=== PATIENT | female | born 1960 | race Caucasian/White ===

== ENCOUNTER 2019-10-06 06:11 | Day surgery (SDC) | payer MEDICAID ==
[2019-10-06] MEDS ORDERED: Lactated Ringers 1,000 ML IV SCH (06:30)
[2019-10-06] MEDS ORDERED: XYLOCAINE 1%/Epi 1:100000 MDV 20 ML ONE (07:16)
[2019-10-06] MEDS ORDERED: DIPRIVAN 200 MG/20 ML IV ONE (07:49)
[2019-10-06] MEDS ORDERED: Versed 2 MG/2 ML Injection ONE (07:50)
[2019-10-06] MEDS ORDERED: SUBLIMAZE 250 MCG/5 ML ONE (07:50)
[2019-10-06] MEDS ORDERED: Ketamine HCl 50 MG/ML ONE (07:50)
[2019-10-06] MEDS ORDERED: SUBLIMAZE 100 MCG/2 ML ONE (07:52)
[2019-10-06] MEDS ORDERED: Decadron 4 MG INJ ONE (08:01)
[2019-10-06] MEDS ORDERED: Zofran 4 MG/2 ML VIAL ONE (08:01)
[2019-10-06 09:13] VITALS: O2SAT 98
[2019-10-06 09:42] VITALS: BP 149/81; PULSE 67
--- NOTE | 2019-10-07 09:37 | OP ---
SURGERY DATE/TIME: 10/06/2019 0800 PREOPERATIVE DIAGNOSIS: Severe cervical dysplasia. POSTOPERATIVE DIAGNOSIS: Severe cervical dysplasia. PROCEDURE: Loop electrosurgical excision procedure. SURGEON: Chu Eller D.O. EASTER BUNNY: Reed Rubio surgical garment assembly supervisor. ANESTHESIA: MAC sedation. ESTIMATED BLOOD LOSS: Minimal. COMPLICATIONS: None. INDICATIONS: The risks, benefits, indications and alternatives of the procedure were reviewed with the patient prior to procedure. The patient understood the risk of infection, bleeding, bowel injury, bladder injury, ureteral injury, uterine perforation, decreased libido and anorgasmia associated with this procedure and desires to have this procedure as a possible need to alleviate her current medical condition. DESCRIPTION OF PROCEDURE AND FINDINGS: At this point the patient is taken to the operating room, MAC sedation was given without complication. The patient was placed in dorsal lithotomy position, prepped and draped in the usual sterile fashion. A coated speculum is then placed in the patient's vagina and the cervix is then injected circumferentially with 1% lidocaine with epinephrine. From this point the loop instrument was then used to excise the ectocervical tissue in a right to left motion with a depth of 7 to 8 mm which was excised without complication. An additional top hat was taken where an additional 2 to 3 mm of endocervical tissue was excised in similar fashion in a right to left motion. From this point after excision, the loop employment interviewer ball was used to coagulate the surface of the cervix where hemostasis was obtained. From this point the instruments were removed and Monsel solution was placed on the cervix as well for further hemostasis. At this point all instruments were then removed from the patient's vaginal region. There was no bleeding that was noted. The patient was then taken out of the dorsal lithotomy position, was taken out of anesthesia and was then taken to the recovery room in stable condition. All instruments and laps were accounted for x2.
== END 2019-10-06 09:40 | disposition home or self-care (01) ==
LOC: SDC 06:11
PROVIDERS: ATTEND Obstetrics & Gynecology
DX: D06.9 Carcinoma in situ of cervix, unspecified (principal)
CPT/HCPCS: 57460; J1100; J2250; J2405; J2704; J3010

== ENCOUNTER 2019-12-31 20:09 | Emergency (ER) | payer MEDICAID ==
[2019-12-31] MEDS ORDERED: Sodium Chloride 0.9% 1000 ML 1,000 ML IV STA (20:41)
[2019-12-31] MEDS ORDERED: Sodium Chloride 0.9% 1000 ML 1,000 ML ONE ×2 (20:45→23:14)
[2019-12-31 21:00] LABS: ALBUMIN 5.2 g/dL (3.5-5.0); ALKALINE PHOSPHATASE 91 U/L (38-126); ANION GAP 18.5 MEQ/L (5-15); BLOOD UREA NITROGEN 12 mg/dL (7-17); CHLORIDE 62 mmol/L (98-107); Calcium 9.6 mg/dL (8.4-10.2); Carbon Dioxide 29 mmol/L (22-30); Glucose 114 mg/dL (74-106); Potassium 3.1 mmol/L (3.5-5.1); SGOT/AST 113 U/L (14-36); SGPT/ALT 45 U/L (0-35); Total Protein 7.9 g/dL (6.3-8.2)
[2019-12-31 21:04] LABS: SODIUM 106 mmol/L (137-145)
[2019-12-31 21:08] LABS: Absolute Neutrophil Ct (ANC) 8.44 (1.4-6.9); BASOPHIL % 0.1 % (0.0-0.4); Basophil (Absolute #) 0.01 (0-0.4); Eosinophil % 0.2 % (0.00-5.0); Eosinophil (Absolute #) 0.02 (0-0.5); Hematocrit 39.8 % (35-47); Lymphocytes % 14.2 % (24.0-44.0); Mean Cell Volume 82.1 fl (78-100); Mean Corpuscular Hemoglobin 30.9 pg (26-32); Mean Corpuscular Hgb Concent. 37.7 g/dl (32-36); Monocyte (Absolute #) 1.16 (0.0-1.3); Monocytes % 10.3 % (0.0-12.0); Neutrophil % 75.2 % (36.0-66.0); Platelet Count 270 K/mm3 (150-450); Red Blood Count 4.85 M/mm3 (4.1-5.4); Red Cell Distribution Width 12.1 % (11.5-14.0); White Blood Count 11.2 K/mm3 (4.0-10.5)
[2019-12-31] MEDS ORDERED: Klor Con 10 MEQ PO ONE ×2 (21:12→21:20)
[2019-12-31 21:18] LABS: Appearance SLIGHTLY CLOUDY (CLEAR); Bacteria MANY /HPF (NEGATIVE); Bilirubin NEGATIVE (NEGATIVE); Blood NEGATIVE Ery/ul (0-5); Epithelial Cells RARE /HPF (FEW); Glucose NEGATIVE (NEGATIVE); Ketones NEGATIVE (NEGATIVE); Leukocyte Esterase NEGATIVE (NEGATIVE); Mucus SLIGHT /HPF (NEGATIVE); Nitrite POSITIVE (NEGATIVE); Protein,Urine Dip NEGATIVE (Negative); RBC 0-2 /HPF (0-2); Specific Gravity 1.013 (1.005-1.025); Urobilinogen NEGATIVE mg/dL (0-1)
--- NOTE | 2019-12-31 21:29 | ERPHSYRPT ---
- History of Present Illness Time Seen by Provider: 12/31/19 20:30 Source: patient Exam Limitations: no limitations Patient Subjective Stated Complaint: pt states she had blood wark drawn at the [facility] today and they called and told her that her sodium and chlor jamshid were low and to go to the emergency room. denies any abnormal symptoms. Triage Nursing Assessment: pt alert and oriented, answers questions approp. pt ambulatoryw ith steady gait noted. respirations nonlabored. skin warm and dry. pt denies chest pain, pressure, shortness of breath. no numbness or tingling. Physician History: Patient is a 59-year-old female presents to our ED for evaluation of hyponatremia. Patient was referred to our department from [facility]. Patient had routine blood drawn and results today reported a sodium of 108. Patient's stated that patient has been losing her balance more frequently. He states that patient seems a little confused. No BHT or LOC. No trauma. Patient is a smoker. Patient states she has lost approximately 60 pounds over the past 2 years. Patient denies symptoms otherwise. No chest pain or shortness of breath. No nausea vomiting or diaphoresis. Patient denies feeling weak. No fever. No neck pain. No photophobia. Patient has no meningeal symptomology. Patient voices no other complaints at this time. Timing/Duration: today Severity: moderate Modifying Factors: Improves With: nothing Associated Symptoms: No nausea, No vomiting, No abdominal pain, No shortness of breath, No heartburn, No diaphoresis, No cough, No chills, No chest pain, No fever, No headaches, No loss of appetite, No malaise, No rash, No syncope, No seizure, No weakness Allergies/Adverse Reactions: Penicillins Allergy (Unknown, Verified 12/31/19 20:36) Sulfa (Sulfonamide Antibiotics) Allergy (Unknown, Verified 12/31/19 20:36) sulfamethoxazole [From Bactrim] Allergy (Unknown, Verified 12/31/19 20:36) trimethoprim [From Bactrim] Allergy (Unknown, Verified 12/31/19 20:36) Home Medications: Hydroxychloroquine Sulfate [Plaquenil] 200 mg PO DAILY 09/30/19 [History] Lisinopril 20 mg [Zestril 20 MG] 30 mg PO DAILY 09/30/19 [History] Chlorthalidone 25 mg PO 12/31/19 [History] Hx Tetanus, Diphtheria Vaccination/Date Given: No (unsure) Hx Influenza Vaccination/Date Given: No Hx Pneumococcal Vaccination/Date Given: No Immunizations Up to Date: No Travel Risk - International Travel Have you traveled outside of the country in past 3 weeks: No - Coronavirus Screening Are you exhibiting any of the following symptoms?: No Close contact with a COVID-19 positive Pt in past 14-21 Days: No - Review of Systems Constitutional: No Symptoms, No Fever, No Chills Eyes: No Symptoms Ears, Nose, & Throat: No Symptoms Respiratory: No Symptoms, No Cough, No Dyspnea Cardiac: No Symptoms, No Chest Pain, No Edema, No Syncope Abdominal/Gastrointestinal: No Symptoms, No Abdominal Pain, No Nausea, No Vomiting, No Diarrhea Genitourinary Symptoms: No Symptoms, No Dysuria Musculoskeletal: No Symptoms, No Back Pain, No Neck Pain Skin: No Symptoms, No Rash Neurological: No Symptoms, No Dizziness, No Focal Weakness, No Sensory Changes Psychological: No Symptoms Endocrine: No Symptoms Hematologic/Lymphatic: No Symptoms Immunological/Allergic: No Symptoms All Other Systems: Reviewed and Negative - Past Medical History Pertinent Past Medical History: Yes Neurological History: No Pertinent History ENT History: No Pertinent History Cardiac History: Hypertension Respiratory History: No Pertinent History Endocrine Medical History: No Pertinent History Musculoskeletal History: Arthritis GI Medical History: No Pertinent History History: No Pertinent History Psycho-Social History: No Pertinent History Female Reproductive Disorders: No Pertinent History - Past Surgical History Past Surgical History: Yes Neuro Surgical History: No Pertinent History Cardiac: No Pertinent History Respiratory: No Pertinent History Gastrointestinal: No Pertinent History Female Surgical History: Tubal Ligation, Other Other Surgical History: tubal pregnacy - Social History Smoking Status: Current every day smoker How long have you smoked: age 21 Exposure to second hand smoke: Yes Drug Use: none Patient Lives Alone: No - Nursing Vital Signs Nursing Vital Signs: Initial Vital Signs Temperature 97.7 F 12/31/19 20:26 Pulse Rate 65 12/31/19 20:26 Respiratory Rate 16 12/31/19 20:26 Blood Pressure 127/108 12/31/19 20:26 O2 Sat by Pulse Oximetry 100 12/31/19 20:26 Pain Scale Pain Intensity 0 - Physical Exam General Appearance: no apparent distress, alert Eye Exam: PERRL/EOMI, eyes nml inspection Ears, Nose, Throat Exam: normal ENT inspection, TMs normal, pharynx normal, moist mucous membranes Neck Exam: normal inspection, non-tender, supple, full range of motion Respiratory Exam: normal breath sounds, lungs clear, No respiratory distress Cardiovascular Exam: regular rate/rhythm, normal heart sounds, normal peripheral pulses Gastrointestinal/Abdomen Exam: soft, normal bowel sounds, No tenderness, No mass Back Exam: normal inspection, normal range of motion, No CVA tenderness, No vertebral tenderness Extremity Exam: normal inspection, normal range of motion, pelvis stable Neurologic Exam: alert, oriented x 3, cooperative, normal mood/affect, nml cerebellar function, sensation nml, No motor deficits Skin Exam: normal color, warm, dry, No rash Lymphatic Exam: No adenopathy SpO2: 100 O2 Delivery: Room Air - Course Nursing assessment & vital signs reviewed: Yes - Radiology Exams Chest X-ray Interpretation: Interpreted by me (faint opacity left lung base) - CT Exams Head CT Interpretation: Tele-radiologist Report (No acute intracranial abnormality. Mild atrophy. Small chronic right lacunar infarct.) Ordered Tests: Active Orders 24 hr Category Date Time Status IV Insertion STAT Care 12/31/19 20:41 Completed CHEST 1 VIEW (PORTABLE) Stat Exams 12/31/19 23:20 Taken HEAD WITHOUT CONTRAST [CT] Stat Exams 12/31/19 23:19 Taken CBC W DIFF Stat Lab 12/31/19 20:44 Completed CMP Stat Lab 12/31/19 20:44 Completed CULTURE,URINE Stat Lab 12/31/19 21:09 Received UA W/RFX UR CULTURE Stat Lab 12/31/19 21:09 Completed Medication Summary Discontinued Medications Generic Name Dose Route Start Last Admin Trade Name Freq PRN Reason Stop Dose Admin Sodium Chloride 1,000 mls @ 999 mls/hr 12/31/19 20:41 12/31/19 22:05 Sodium Chloride 0.9% 1000 Ml IV 12/31/19 21:41 Infused .Q1H1M STA Infusion Sodium Chloride Confirm 12/31/19 20:45 Sodium Chloride 0.9% 1000 Ml Administered 12/31/19 20:46 Dose 1,000 mls @ ud .ROUTE .STK-MED ONE Sodium Chloride 1,000 mls @ 200 mls/hr 12/31/19 23:15 12/31/19 23:14 Sodium Chloride 0.9% 1000 Ml IV 01/30/20 23:14 200 mls/hr .Q5H IRAM Administration Sodium Chloride Confirm 12/31/19 23:14 Sodium Chloride 0.9% 1000 Ml Administered 12/31/19 23:15 Dose 1,000 mls @ ud .ROUTE .STK-MED ONE Nitrofurantoin Macrocrystals 100 mg 12/31/19 22:51 12/31/19 22:53 Macrobid 100mg Capsule PO 12/31/19 22:52 100 mg STAT ONE Administration Nitrofurantoin Macrocrystals Confirm 12/31/19 22:53 Macrobid 100mg Capsule Administered 12/31/19 22:54 Dose 100 mg .ROUTE .STK-MED ONE Potassium Chloride 40 meq 12/31/19 21:12 12/31/19 21:21 Klor Con 10 Meq PO 12/31/19 21:13 40 meq STAT ONE Administration Potassium Chloride Confirm 12/31/19 21:20 Klor Con 10 Meq Administered 12/31/19 21:21 Dose 40 meq PO .STK-MED ONE Lab/Rad Data: Laboratory Result Diagrams 12/31/19 20:44 12/31/19 20:44 Laboratory Results 12/31/19 12/31/19 12/31/19 Range/Units 21:09 20:44 20:44 WBC 11.2 H (4.0-10.5) K/mm3 RBC 4.85 (4.1-5.4) M/mm3 Hgb 15.0 (12.0-16.0) gm/dl Hct 39.8 (35-47) % MCV 82.1 (78-100) fl MCH 30.9 (26-32) pg MCHC 37.7 H (32-36) g/dl RDW 12.1 (11.5-14.0) % Plt Count 270 (150-450) K/mm3 MPV 9.0 (7.5-11.0) fl Gran % 75.2 H (36.0-66.0) % Eos # (Auto) 0.02 (0-0.5) Absolute Lymphs (auto) 1.60 (1.0-4.6) Absolute Monos (auto) 1.16 (0.0-1.3) Lymphocytes % 14.2 L (24.0-44.0) % Monocytes % 10.3 (0.0-12.0) % Eosinophils % 0.2 (0.00-5.0) % Basophils % 0.1 (0.0-0.4) % Absolute Granulocytes 8.44 H (1.4-6.9) Basophils # 0.01 (0-0.4) Sodium 106 L* (137-145) mmol/L Potassium 3.1 L (3.5-5.1) mmol/L Chloride 62 L (98-107) mmol/L Carbon Dioxide 29 (22-30) mmol/L Anion Gap 18.5 H (5-15) MEQ/L BUN 12 (7-17) mg/dL Creatinine 0.90 (0.52-1.04) mg/dL Estimated GFR > 60.0 ML/MIN Glucose 114 H (74-106) mg/dL Calcium 9.6 (8.4-10.2) mg/dL Total Bilirubin 1.30 (0.2-1.3) mg/dL AST 113 H (14-36) U/L ALT 45 H (0-35) U/L Alkaline Phosphatase 91 (38-126) U/L Serum Total Protein 7.9 (6.3-8.2) g/dL Albumin 5.2 H (3.5-5.0) g/dL Urine Color YELLOW (YELLOW) Urine Appearance SLIGHTLY CLOUDY (CLEAR) Urine pH 6.0 (5-6) Ur Specific [place] 1.013 (1.005-1.025) Urine Protein NEGATIVE (Negative) Urine Ketones NEGATIVE (NEGATIVE) Urine Blood NEGATIVE (0-5) Aquiles/ul Urine Nitrite POSITIVE (NEGATIVE) Urine Bilirubin NEGATIVE (NEGATIVE) Urine Urobilinogen NEGATIVE (0-1) mg/dL Ur Leukocyte Esterase NEGATIVE (NEGATIVE) Urine WBC (Auto) 6-10 (0-5) /HPF Urine RBC (Auto) 0-2 (0-2) /HPF U Hyaline Cast (Auto) 6-10 (0-2) /LPF U Epithel Cells (Auto) RARE (FEW) /HPF Urine Bacteria (Auto) MANY (NEGATIVE) /HPF Urine Mucus (Auto) SLIGHT (NEGATIVE) /HPF Urine Culture Reflexed YES (NO) Urine Glucose NEGATIVE (NEGATIVE) mg/dL - Progress Progress: improved Progress Note: 01/01/20 00:[address] Floyd, ER physician at [facility] who accepts transfer. Plan of care discussed with patient and . They agreed to transfer to [facility] for further evaluation and treatment. Discussed with Dr.: Kimble (Case discussed with Dr. Ng who advises transfer for higher level of care.) Counseled pt/family regarding: lab results, diagnosis, rad results, smoking cessation - Departure Departure Disposition: In-patient Admission, Transfer Clinical Impression: Hyponatremia, UTI (urinary tract infection), Confusion, Electrolyte abnormality, Hyperalbuminemia, Hypokalemia, Opacity of lung on imaging study Condition: Stable Critical Care Time: No Referrals: VICENTA CESAR COMMUNITY ASSISTANT [Primary Care Provider] -
[2019-12-31] MEDS ORDERED: Macrobid 100MG Capsule PO ONE (22:51)
[2019-12-31] MEDS ORDERED: Macrobid 100MG Capsule ONE (22:53)
[2019-12-31] MEDS ORDERED: Sodium Chloride 0.9% 1000 ML 1,000 ML IV SCH (23:15)
[2020-01-01 01:15] VITALS: BP 116/73; PULSE 62
[2020-01-01 01:59] VITALS: O2SAT 100
--- NOTE | 2020-01-01 09:01 | XRAY ---
Indication: Malignancy. Confusion. Comparison: None Portable apical lordotic chest hyperinflated and clear with incidental left hilar calcified granulomas. Heart and mediastinal structures within normal limits. Bony thorax intact with mild osteopenia, mild degenerative changes, and mild double curvature scoliosis. Impression: Nonacute hyperinflated chest with chronic features.
--- NOTE | 2020-01-01 09:04 | XRAY ---
Indication: Confusion. No known injury. Multiple contiguous axial images obtained through the head without contrast. Comparison: None Age-appropriate global atrophy and minimal periventricular degenerative micro-ischemia bilaterally. Small 8-9 mm focus old infarct right external capsule anteriorly. No acute intracranial hemorrhage, abnormal extra-axial fluid collection, or mass effect. Fourth ventricle is midline without hydrocephalus. Holcomb-white matter differentiation maintained. Bony calvarium intact. Visualized paranasal sinuses and mastoid air cells are clear. Impression: Nonacute aging brain with small old infarct right external capsule. Comment: Preliminary interpretation was made by [facility]. No critical discrepancy.
== END 2020-01-01 01:13 | disposition short-term general hospital (02) ==
LOC: ED 20:09
DX: E87.1 Hypo-osmolality and hyponatremia (principal); N39.0 Urinary tract infection, site not specified; R41.0 Disorientation, unspecified; E87.8 Other disorders of electrolyte and fluid balance, not elsewhere classified; E88.09 Other disorders of plasma-protein metabolism, not elsewhere classified; E87.6 Hypokalemia; R91.8 Other nonspecific abnormal finding of lung field
CPT/HCPCS: 36000; 36415; 70450; 71045; 80053; 81001; 85025; 87077; 87086; 87186; 96360; 96361; 99285; A9270-GY

== ENCOUNTER 2022-04-24 20:05 | Emergency (ER) | payer OTHER ==
--- NOTE | 2022-04-24 20:29 | ERPHSYRPT ---
- History of Present Illness Time Seen by Provider: 04/24/22 20:29 Source: patient, family Exam Limitations: no limitations Patient Subjective Stated Complaint: pt went and seen DR. subramanian today for routine checkup for and had labs checked for her home meds and sodium was low Triage Nursing Assessment: pt ambulatory to bed by self, pt alert and oriented x3, pt went and seen Dr. Subramanian today for routine blood work and sodium was low. pt was sent here by Dr. Cates. skin pwd, pt slightly hypertensive and slightly anxious Physician History: This is a 61-year-old white female patient of Dr. Subramanian with known, chronic low sodium who states she is using in the 128 230 range. However, labs drawn this morning showed a sodium of 120. The report was given to Dr. Darryn Lamb this evening and patient was told to come into the hospital for repeat blood draw and further management. Patient states that she is not confused and does not have a headache. She states that she has no symptoms. She has no shortness of breath. She has no chest pain. She has no nausea vomiting or diarrhea. She has no abdominal pain. Patient is supposed to be taking sodium chloride tablets twice a day but only takes it once a day. Patient a history of hypertension. Timing/Duration: today Severity: mild Modifying Factors: Improves With: other Associated Symptoms: denies symptoms Allergies/Adverse Reactions: Penicillins Allergy (Unknown, Verified 04/24/22 20:19) Sulfa (Sulfonamide Antibiotics) Allergy (Unknown, Verified 04/24/22 20:19) sulfamethoxazole [From Bactrim] Allergy (Unknown, Verified 04/24/22 20:19) trimethoprim [From Bactrim] Allergy (Unknown, Verified 04/24/22 20:19) Home Medications: Hydroxychloroquine Sulfate [Plaquenil] 200 mg PO DAILY 09/30/19 [History] Lisinopril 20 mg [Zestril 20 MG] 420 mg PO DAILY 09/30/19 [History] Amlodipine Besylate 5 mg PO DAILY 04/24/22 [History] Sodium Chloride 1,000 mg PO DAILY 04/24/22 [History] Hx Tetanus, Diphtheria Vaccination/Date Given: No Hx Influenza Vaccination/Date Given: Yes Hx Pneumococcal Vaccination/Date Given: No Immunizations Up to Date: No Travel Risk - International Travel Have you traveled outside of the country in past 3 weeks: No - Coronavirus Screening Are you exhibiting any of the following symptoms?: No Close contact with a COVID-19 positive Pt in past 14-21 Days: No - Vaccine Status Have you recieved a Covid-19 vaccination: Yes Special Warfare Operator: [employer] - Review of Systems Constitutional: No Symptoms Eyes: No Symptoms Ears, Nose, & Throat: No Symptoms Respiratory: No Symptoms Cardiac: No Symptoms Abdominal/Gastrointestinal: No Symptoms Genitourinary Symptoms: No Symptoms Musculoskeletal: No Symptoms Skin: No Symptoms Neurological: No Symptoms Psychological: No Symptoms Endocrine: No Symptoms Hematologic/Lymphatic: No Symptoms Immunological/Allergic: No Symptoms All Other Systems: Reviewed and Negative - Past Medical History Pertinent Past Medical History: Yes Neurological History: No Pertinent History ENT History: No Pertinent History Cardiac History: Hypertension Respiratory History: No Pertinent History Endocrine Medical History: No Pertinent History Musculoskeletal History: Arthritis GI Medical History: No Pertinent History History: No Pertinent History Psycho-Social History: No Pertinent History Female Reproductive Disorders: No Pertinent History - Past Surgical History Past Surgical History: Yes Neuro Surgical History: No Pertinent History Cardiac: No Pertinent History Respiratory: No Pertinent History Gastrointestinal: No Pertinent History Musculoskeletal: No Pertinent History Female Surgical History: Tubal Ligation, Other Other Surgical History: tubal pregnacy - Social History Smoking Status: Current every day smoker How long have you smoked: age 21 Exposure to second hand smoke: Yes Drug Use: none Patient Lives Alone: No - Nursing Vital Signs Nursing Vital Signs: Initial Vital Signs Temperature 97.8 F 04/24/22 20:19 Pulse Rate 78 04/24/22 20:19 Respiratory Rate 18 04/24/22 20:19 Blood Pressure 164/93 04/24/22 20:19 O2 Sat by Pulse Oximetry 98 04/24/22 20:19 Pain Scale Pain Intensity 0 - Physical Exam General Appearance: no apparent distress, alert, anxiety Eye Exam: PERRL/EOMI, eyes nml inspection Ears, Nose, Throat Exam: normal ENT inspection, moist mucous membranes Neck Exam: normal inspection, non-tender, supple, full range of motion Respiratory Exam: normal breath sounds, lungs clear, airway intact, No chest te nderness, No respiratory distress Cardiovascular Exam: regular rate/rhythm, normal heart sounds, normal peripheral pulses Gastrointestinal/Abdomen Exam: soft, normal bowel sounds, No tenderness Pelvic Exam: not done Rectal Exam: not done Neurologic Exam: alert, oriented x 3, cooperative, 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, normal mood/affect, nml cerebellar function, nml station & gait, sensation nml Skin Exam: normal color, warm, dry Lymphatic Exam: No adenopathy SpO2 Interpretation: normal SpO2: 98 O2 Delivery: Room Air - Course Nursing assessment & vital signs reviewed: Yes Ordered Tests: Active Orders 24 hr Category Date Time Status IV Insertion STAT Care 04/24/22 20:29 Active CBC W DIFF Stat Lab 04/24/22 20:29 Completed CMP Stat Lab 04/24/22 20:30 Completed POTASSIUM, URINE RANDOM Stat Lab 04/24/22 21:14 Completed Sodium, Urine Stat Lab 04/24/22 21:14 Completed UA W/RFX CULTURE Stat Lab 04/24/22 21:14 Received Medication Summary Discontinued Medications Generic Name Dose Route Start Last Admin Trade Name Kuldipq PRN Reason Stop Dose Admin Sodium Chloride 1,000 mls @ 999 mls/hr 04/24/22 20:29 04/24/22 21:44 Sodium Chloride 0.9% 1000 Ml IV 04/24/22 21:29 Infused .Q1H1M STA Infusion Sodium Chloride Confirm 04/24/22 20:37 Sodium Chloride 0.9% 1000 Ml Administered 04/24/22 20:38 Dose 1,000 mls @ ud .ROUTE .K-MED ONE Lab/Rad Data: Laboratory Result Diagrams 04/24/22 20:29 04/24/22 20:30 Laboratory Results 04/24/22 04/24/22 04/24/22 Range/Units 21:14 21:14 20:30 WBC (4.0-10.5) x10^3/uL RBC (4.1-5.4) x10^6/uL Hgb (12.0-16.0) g/dL Hct (35-47) % MCV (78-100) fL MCH (26-32) pg MCHC (32-36) g/dL RDW (11.5-14.0) % Plt Count (150-450) x10^3/uL MPV (7.5-11.0) fL Gran % (36.0-66.0) % Immature Gran % (Auto) (0.00-0.4) % Nucleat RBC Rel Count (0.00-0.1) % Eos # (Auto) (0-0.5) x10^3/uL Immature Gran # (Auto) (0.00-0.03) x10^3u/L Absolute Lymphs (auto) (1.0-4.6) x10^3/uL Absolute Monos (auto) (0.0-1.3) x10^3/uL Absolute Nucleated RBC (0.00-0.01) x10^3u/L Lymphocytes % (24.0-44.0) % Monocytes % (0.0-12.0) % Eosinophils % (0.00-5.0) % Basophils % (0.0-0.4) % Absolute Granulocytes (1.4-6.9) x10^3/uL Basophils # (0-0.4) x10^3/uL Sodium 124 L (137-145) mmol/L Potassium 4.0 D (3.5-5.1) mmol/L Chloride 91 L (98-107) mmol/L Carbon Dioxide 24 (22-30) mmol/L Anion Gap 13.0 (5-15) MEQ/L BUN 7 (7-17) mg/dL Creatinine 0.61 (0.52-1.04) mg/dL Estimated GFR > 60.0 ML/MIN Glucose 97 (74-106) mg/dL Calcium 9.2 (8.4-10.2) mg/dL Total Bilirubin 0.70 (0.2-1.3) mg/dL AST 24 (14-36) U/L ALT 18 (0-35) U/L Alkaline Phosphatase 98 (38-126) U/L Serum Total Protein 7.8 (6.3-8.2) g/dL Albumin 4.9 (3.5-5.0) g/dL Urine Sodium 21 L (30-90) mmol/L Urine Potassium 5.0 mmol/L 04/24/22 Range/Units 20:29 WBC 8.5 (4.0-10.5) x10^3/uL RBC 4.47 (4.1-5.4) x10^6/uL Hgb 14.2 (12.0-16.0) g/dL Hct 41.1 (35-47) % MCV 91.9 (78-100) fL MCH 31.8 (26-32) pg MCHC 34.5 (32-36) g/dL RDW 11.8 (11.5-14.0) % Plt Count 305 (150-450) x10^3/uL MPV 8.7 (7.5-11.0) fL Gran % 56.7 (36.0-66.0) % Immature Gran % (Auto) 0.2 (0.00-0.4) % Nucleat RBC Rel Count 0.0 (0.00-0.1) % Eos # (Auto) 0.09 (0-0.5) x10^3/uL Immature Gran # (Auto) 0.02 (0.00-0.03) x10^3u/L Absolute Lymphs (auto) 2.73 (1.0-4.6) x10^3/uL Absolute Monos (auto) 0.82 (0.0-1.3) x10^3/uL Absolute Nucleated RBC 0.00 (0.00-0.01) x10^3u/L Lymphocytes % 32.0 (24.0-44.0) % Monocytes % 9.6 (0.0-12.0) % Eosinophils % 1.1 (0.00-5.0) % Basophils % 0.4 (0.0-0.4) % Absolute Granulocytes 4.84 (1.4-6.9) x10^3/uL Basophils # 0.03 (0-0.4) x10^3/uL Sodium (137-145) mmol/L Potassium (3.5-5.1) mmol/L Chloride (98-107) mmol/L Carbon Dioxide (22-30) mmol/L Anion Gap (5-15) MEQ/L BUN (7-17) mg/dL Creatinine (0.52-1.04) mg/dL Estimated GFR ML/MIN Glucose (74-106) mg/dL Calcium (8.4-10.2) mg/dL Total Bilirubin (0.2-1.3) mg/dL AST (14-36) U/L ALT (0-35) U/L Alkaline Phosphatase (38-126) U/L Serum Total Protein (6.3-8.2) g/dL Albumin (3.5-5.0) g/dL Urine Sodium (30-90) mmol/L Urine Potassium mmol/L - Progress Progress Note: 04/24/22 21:55 Medical decision making: This patient was told that the proper place for her to be is admitted in the hospital. I spoke with Dr. Darryn Lamb and she agrees. However, when I spoke with the patient she is leaving AGAINST MEDICAL ADVICE. I explained to her that her symptoms may worsen and she may have a seizure, stroke or . Patient states that she needs to go to work and she will return tomorrow for repeat labs but she does not want to stay in the h ospital here or anywhere else. She will sign AGAINST MEDICAL ADVICE form. Discussed with .: Violet Counseled pt/family regarding: lab results, diagnosis, need for follow-up - Departure Departure Disposition: AMA Clinical Impression: Hyponatremia Condition: Stable Critical Care Time: No Referrals: PATRIA SUBRAMANIAN MD [Primary Care Provider] - Follow up/PCP as directed Additional Instructions: Return to [facility] laboratory tomorrow to repeat the sodium level. Ced christy when you get home take your p.m. dose of sodium chloride. Repeat your a.m. dose of sodium chloride tomorrow morning. Add salt to your diet. Return the emergency department if symptoms are present. Follow-up with your primary care provider for further evaluation management
[2022-04-24] MEDS ORDERED: Sodium Chloride 0.9% 1000 ML 1,000 ML ONE (20:37)
[2022-04-24] MEDS: Sodium Chloride 0.9% 1000 ML 1,000 ML IV STA (20:39)
[2022-04-24 20:47] LABS: Absolute Neutrophil Ct (ANC) 4.84 x10^3/uL (1.4-6.9); Basophil (Absolute #) 0.03 x10^3/uL (0-0.4); Eosinophil % 1.1 % (0.00-5.0); Eosinophil (Absolute #) 0.09 x10^3/uL (0-0.5); Hematocrit 41.1 % (35-47); Hemoglobin 14.2 g/dL (12.0-16.0); Lymphocyte (Absolute #) 2.73 x10^3/uL (1.0-4.6); Mean Cell Volume 91.9 fL (78-100); Mean Corpuscular Hemoglobin 31.8 pg (26-32); Mean Corpuscular Hgb Concent. 34.5 g/dL (32-36); Mean Platelet Volume 8.7 fL (7.5-11.0); Monocyte (Absolute #) 0.82 x10^3/uL (0.0-1.3); Monocytes % 9.6 % (0.0-12.0); Neutrophil % 56.7 % (36.0-66.0); Platelet Count 305 x10^3/uL (150-450); Red Blood Count 4.47 x10^6/uL (4.1-5.4); Red Cell Distribution Width 11.8 % (11.5-14.0); White Blood Count 8.5 x10^3/uL (4.0-10.5)
[2022-04-24 21:03] LABS: ALBUMIN 4.9 g/dL (3.5-5.0); ALKALINE PHOSPHATASE 98 U/L (38-126); BLOOD UREA NITROGEN 7 mg/dL (7-17); CHLORIDE 91 mmol/L (98-107); Calcium 9.2 mg/dL (8.4-10.2); Carbon Dioxide 24 mmol/L (22-30); Creatinine 1 0.61 mg/dL (0.52-1.04); EST GLOMERULAR FILTRATION RATE > 60.0 ML/MIN; Glucose 97 mg/dL (74-106); SGOT/AST 24 U/L (14-36); SGPT/ALT 18 U/L (0-35); SODIUM 124 mmol/L (137-145); Total Protein 7.8 g/dL (6.3-8.2)
[2022-04-24 22:06] VITALS: BP 131/73; PULSE 76; O2SAT 97
[2022-04-24 22:13] LABS: Appearance CLEAR (CLEAR); Bilirubin NEGATIVE (NEGATIVE); Dipstick done @ ? MAIN LAB; Glucose NEGATIVE (NEGATIVE); Ketones NEGATIVE (NEGATIVE); Nitrite NEGATIVE (NEGATIVE); Ph 6.5 (5-6); Protein,Urine Dip NEGATIVE (Negative); RBC NEGATIVE Ery/ul (0-5); Specific Gravity <=1.005 (1.005-1.025); Urine Cultured Indicated? NO; Urobilinogen 0.2 mg/dL (0-1)
== END 2022-04-24 22:10 | disposition left against medical advice (07) ==
LOC: ED 20:05
DX: E87.1 Hypo-osmolality and hyponatremia (principal); I10 Essential (primary) hypertension; Z72.0 Tobacco use; Z79.899 Other long term (current) drug therapy
CPT/HCPCS: 36000; 36415; 80053; 81015; 83935; 84133; 84300; 85025; 96360; 99284